=== PATIENT | male | born 1990 | race African-American/Black ===

== ENCOUNTER 2018-01-12 19:57 | Emergency (ER) | payer BC, MEDICAID ==
[~2018-01-12] VITALS: Ht 182.9 cm; Wt 100.0 kg
[2018-01-12] MEDS ORDERED: KETOROLAC TROMETHAMINE 60 MG/2 ML VIAL IM ONE (21:00)
[2018-01-12] MEDS ORDERED: GABAPENTIN 100 MG CAPSULE PO ONE (21:00)
[2018-01-12 21:10] VITALS: BP 121/64
== END 2018-01-12 21:45 | disposition home or self-care (01) ==
LOC: EMS 19:59
DX: M54.42 Lumbago with sciatica, left side (principal); F17.210 Nicotine dependence, cigarettes, uncomplicated
CPT/HCPCS: 96372; 99283; 99406; J1885